=== PATIENT | male | born 1985 | race Caucasian/White ===

== ENCOUNTER 2019-02-23 15:37 | Emergency (ER) | payer OTHER ==
[~2019-02-23] VITALS: Ht 177.8 cm; Wt 63.5 kg
== END 2019-02-23 18:07 | disposition home or self-care (01) ==
LOC: ER 15:37
DX: S01.85XA Open bite of other part of head, initial encounter (principal); W54.0XXA Bitten by dog, initial encounter; Y93.89 Activity, other specified; Y92.89 Other specified places as the place of occurrence of the external cause; Y99.8 Other external cause status; B34.9 Viral infection, unspecified

== ENCOUNTER 2022-09-16 13:29 | Emergency (ER) | payer OTHER ==
[~2022-09-16] VITALS: Ht 177.8 cm; Wt 63.5 kg
== END 2022-09-16 17:36 | disposition home or self-care (01) ==
LOC: ER 13:29
DX: S50.02XA Contusion of left elbow, initial encounter (principal); S60.212A Contusion of left wrist, initial encounter; S40.012A Contusion of left shoulder, initial encounter; S50.12XA Contusion of left forearm, initial encounter; W05.2XXA Fall from non-moving motorized mobility scooter, initial encounter; Y93.89 Activity, other specified; Y92.89 Other specified places as the place of occurrence of the external cause; Y99.9 Unspecified external cause status

== ENCOUNTER 2022-10-19 07:41 | Emergency (ER) | payer OTHER ==
[~2022-10-19] VITALS: Ht 177.8 cm; Wt 70.3 kg
== END 2022-10-19 10:02 | disposition home or self-care (01) ==
LOC: ER 07:41
DX: S59.802A Other specified injuries of left elbow, initial encounter (principal)